=== PATIENT | female | born 1980 | race Caucasian/White ===

== ENCOUNTER 2023-12-22 13:05 | Emergency (ER) | payer OTHER, SELFPAY ==
[2023-12-22] VITALS (15 sets, daily range): BP systolic 108–132; BP diastolic 57–85; BMI 35.2
--- NOTE | 2023-12-22 14:09 | ED.GENMED ---
History of Present Illness
<Sariah Davis SITECORE DEVELOPER - Last Filed: 12/22/23 21:39>
General
Chief Complaint: Musculo-Skeletal Complaint
Source: family (Father at bedside providing the history)
Exam Limitations: non verbal-adult and other (Severe Down syndrome)
Time Seen by Provider: 12/22/23 13:26
Nursing documentation reviewed up to this point in time: agreed with
Travel History
Have you had any contact with someone who has COVID-19?: No
Do you have any symptoms of coronavirus? Fever > 100 degrees, chills, cough, shortness of breath, sore throat, loss of taste or smell, muscle aches, or headache?: No
History of Present Illness
History of Present Illness:
43-year-old female with Down syndrome presents with her father at bedside who states patient has a swollen, reddened left lower leg past 2 days. Patient does have a chronic left foot fungal infection which is treated with topical antifungals that
dad states has been worse recently. Pt has been eating and drinking well, no fever. At her baseline mentally.
Past History
<Sariah Davis SITECORE DEVELOPER - Last Filed: 12/22/23 21:39>
Past History
ED Past Medical History: Other (Down Syndrome); Negative Asthma, HTN, Hypercholesterolemia or NIDDM
ED Past Surgical History: None
Social History
Tobacco: Non-smoker
Alcohol: None
Personal: Single
Living: with family
Review of Systems
<Sariah Davis, SITECORE DEVELOPER - Last Filed: 12/22/23 21:39>
Review of Systems
Allergies reviewed?: Yes
All Other Systems: ROS reviewed and negative except as documented in HPI and ROS
Constitutional: Denies fever
Respiratory: Denies trouble breathing
ABD/GI: Denies vomiting, diarrhea or anorexia
Musculoskeletal: Reports other (swelling and redness LLE)
Skin: Reports other (Fungal rash distal left foot, chronic, dad states worse past several days)
Psychiatric: Reports other (nonverbal)
Phy Exam
<Sariah Davis SITECORE DEVELOPER - Last Filed: 12/22/23 21:39>
Physical Exam
Physical Exam:
GENERAL: No acute distress. Alert, nonverbal, severe Down's Syndrome
CONSTITUTIONAL: Afebrile.
EYES: PERRL, conjunctivae normal
ENMT: moist mucus membranes
RESPIRATORY: Regular respirations, nonlabored, lungs clear.
CARDIOVASCULAR: Regular rate and rhythm, no murmurs, no rubs.
GI: Soft, nondistended
MUSCULOSKELETAL: Moves with ease. Well perfused.
SKIN: Warm, dry, pink, fungal rash distal left foot, bright red with peeling skin, LLE mildly erythematous and swollen compared to right.
PSYCH: Will not let anyone perform exam, pushes them away.
NEUROLOGIC: Awake, alert.
Course
<Sariah Davis, SITECORE DEVELOPER - Last Filed: 12/22/23 21:39>
Orders/Labs/Results
Orders:
Orders
12/22/23 14:04
US Periph Venous LOWER Ext LT Urgent
Comment:
Reason For Exam: redness, swelling
12/22/23 14:24
Ketamine Concentrate Injection [Ketamine HCl] 500 mg .ROUTE .[facility]
12/22/23 14:26
Ketamine Concentrate Injection [Ketamine HCl] 170 mg IM NOW STA
12/22/23 14:45
Complete Blood Count/With Diff Urgent
Comprehensive Metabolic Panel Urgent
Free T4 Urgent
TSH Reflex To Free T4 Urgent
12/22/23 14:55
Fluconazole 200 mg/100 ml [Diflucan 200 mg] 100 mg Syringe [Syringe-Pump] 0 ml IV NOW
12/22/23 14:58
CeFAZolin 1 GRAM [Ancef] 1 gram in 5 ml IV NOW
12/22/23 15:03
Fluconazole 200 mg/100 ml [Diflucan 200 mg] 100 ml IV NOW
12/22/23 16:01
Ondansetron Orally Disint [Zofran Odt (Orally Disintegrating)] 4 mg PO NOW STA
Abnormal Lab Results
12/22/23
14:45
RBC 4.10 L 10^6/uL
(4.20-5.40)
MCH 34.4 H pg
(27.0-31.0)
Lymphocytes % 18.4 L %
(20.5-51.1)
BUN 19 H mg/dl
(7-17)
TSH (Reflex) 12.80 H uIU/ml
(0.47-4.68)
12/22/23 14:45
12/22/23 14:45
Vital Signs
Initial and Last Documented VS:
Initial Vital Signs
Temp Pulse Resp BP Pulse Ox
98.6 F 74 17 132/80 96
12/22/23 14:30 12/22/23 14:30 12/22/23 14:30 12/22/23 14:30 12/22/23 14:30
Last Documented Vital Signs
Temp Pulse Resp BP Pulse Ox
98.6 F 78 18 113/71 99
12/22/23 15:50 12/22/23 15:50 12/22/23 15:50 12/22/23 15:50 12/22/23 15:50
<Osmel Eli, DO - Last Filed: 12/22/23 14:17>
Orders/Labs/Results
Orders:
Orders
12/22/23 14:04
US Periph Venous LOWER Ext LT Urgent
Comment:
Reason For Exam: redness, swelling
12/22/23 14:24
Ketamine Concentrate Injection [Ketamine HCl] 500 mg .ROUTE .[facility]
12/22/23 14:26
Ketamine Concentrate Injection [Ketamine HCl] 170 mg IM NOW STA
12/22/23 14:45
Complete Blood Count/With Diff Urgent
Comprehensive Metabolic Panel Urgent
Free T4 Urgent
TSH Reflex To Free T4 Urgent
12/22/23 14:55
Fluconazole 200 mg/100 ml [Diflucan 200 mg] 100 mg Syringe [Syringe-Pump] 0 ml IV NOW
12/22/23 14:58
CeFAZolin 1 GRAM [Ancef] 1 gram in 5 ml IV NOW
12/22/23 15:03
Fluconazole 200 mg/100 ml [Diflucan 200 mg] 100 ml IV NOW
12/22/23 16:01
Ondansetron Orally Disint [Zofran Odt (Orally Disintegrating)] 4 mg PO NOW STA
Abnormal Lab Results
12/22/23
14:45
RBC 4.10 L 10^6/uL
(4.20-5.40)
MCH 34.4 H pg
(27.0-31.0)
Lymphocytes % 18.4 L %
(20.5-51.1)
BUN 19 H mg/dl
(7-17)
TSH (Reflex) 12.80 H uIU/ml
(0.47-4.68)
12/22/23 14:45
12/22/23 14:45
Vital Signs
Initial and Last Documented VS:
Initial Vital Signs
Temp Pulse Resp BP Pulse Ox
98.6 F 74 17 132/80 96
12/22/23 14:30 12/22/23 14:30 12/22/23 14:30 12/22/23 14:30 12/22/23 14:30
Last Documented Vital Signs
Temp Pulse Resp BP Pulse Ox
98.6 F 78 18 113/71 99
12/22/23 15:50 12/22/23 15:50 12/22/23 15:50 12/22/23 15:50 12/22/23 15:50
Procedures
<Sariah Davis SITECORE DEVELOPER - Last Filed: 12/22/23 21:39>
Moderate Sedation
ASA Risk Score: Class I
Chart and allergies reviewed: Yes
Consent for anesthesia obtained: Yes
Time out completed (validating right patient & procedure): Yes
History of difficult intubation: No
Airway free of obstruction: Yes
Patient has a gag reflex: Yes
Patient is able to open mouth: Yes
Patient has no dentures: Yes
Patient has no loose teeth: Yes
Medication administered by Provider during Moderate Sedation: N/A-Meds administered by RN (see MAR) and Other (Ketamine 170 mg IM)
Total dose administered: 170
Time drug administered: 14:30
Start Time: 14:30
Stop Time: 15:35
<Sariah Davis, SITECORE DEVELOPER - Last Filed: 12/22/23 21:39>
MDM/Problems Addressed
Differential Diagnosis Includes:
cellulitis, DVT
MDM/Problems Addressed:
43-year-old female with Down syndrome presents with her father at bedside who states patient has a swollen, reddened left lower leg past 2 days. Patient does have a chronic left foot fungal infection which is treated with topical antifungals that
dad states has been worse recently. Pt has been eating and drinking well, no fever. At her baseline mentally.
12/22/2023 1433 PM
Patient to be consciously sedated with ketamine 3 mg/kg.
Dr. Eli in to evaluate patient and agrees
Moderate sedation consent form signed and scanned into chart
12/22/2023 1456 PM
Patient tolerated the moderate sedation well is alert and back to baseline
12/22/2023 1537 PM
CBC normal
CMP normal
TSH elevated 12.80, father requested we check it as is has been elevated and PCP wanted it rechecked. He will discuss with PCP in 3 days (Monday)
Patient given IV Diflucan for the fungal infection of her foot
Patient given Ancef 1 g IV
Rx for Diflucan 100 mg x 2 pills and Keflex 500 mg QID for 10 days sent to her pharmacy,
12/22/2023 1601 PM
Patient vomited once, most likely side effect from the ketamine, given 1 dose of Zofran
<Sariah Davis, SITECORE DEVELOPER - Last Filed: 12/22/23 21:39>
*Critical Care Note
Total Time (30-74mins, 75-104mins- exclusive of procedures): Not Applicable
ED Attending Note
<Sariah Davis, SITECORE DEVELOPER - Last Filed: 12/22/23 21:39>
-
Portions of this chart may have been created with voice recognition software.� Occasional wrong word or��sound alike� substitutions may have occurred due to the inherent limitations of voice recognition software.
<Osmel Eli, DO - Last Filed: 12/22/23 14:17>
ED Attending Note
Patient seen and examined by attending physician: Yes
I performed the substantive portion of visit, reviewed & personally made and approve the management plan that is documented in note by myself or YANN.: Yes
ED Attending Note:
I have seen and evaluated the patient with a [id number] encounter. I have spoken to the advance practicer provider and involved in the medical history, the physical exam, medical decision making.
Evaluation and management service: agree unless noted differently below.
Results interpretation: agree unless noted differently below.
Focused HPI: 43-year-old female presenting with father for evaluation of leg swelling and redness. Patient has Down syndrome and father is the historian. Patient has been dealing with a fungal infection of her left foot and creams have been used.
Father is worried that the fungal infection is getting worse and now she has redness of her leg. He was sent in to rule out blood. Father states that patient will need sedation
Physical exam: Sitting in bed comfortably. Mild erythema to the left calf. Fungal infection noted to left foot in between webbing of toes
Medical Decision Making: Patient requires ketamine to obtain blood work and ultrasound. Father signed consent. Will rule out DVT and likely start antibiotics
Discharge Plan
Departure
Patient Disposition: Home (Routine Discharge)
Date of Disposition: 12/22/23
Time of Disposition: 15:40
Patient with high blood pressure during this ER visit?: No
Condition: Fair
Discharge Problem:
Cellulitis of left lower extremity, Tinea pedis of left foot
Instructions: Athlete's Foot (DC), Cellulitis (Skin Infection), Adult ED, MODERATE SEDATION ADULT
Prescriptions:
New
cephalexin 500 mg capsule
500 mg PO QID 10 Days Qty: 40 0RF
fluconazole [Diflucan] 100 mg tablet
100 mg PO DAILY Qty: 2 0RF
No Action
ascorbic acid (vitamin C) [Vitamin C] 250 mg Tablet
250 mg PO DAILY
cholecalciferol (vitamin D3) [Vitamin D3] 25 mcg (1,000 unit) Capsule
25 mcg PO DAILY
Activity Restrictions/Additional Instructions:
As we discussed, keep the left foot clean and dry.
You may continue antifungal topical creams or sprays
I gave Sejal Diflucan (antifungal) intravenously today and sent a prescription to your pharmacy for two Diflucan 100 mg tablets. You may crush them and put in food tomorrow and Monday.
I also sent a prescription for Keflex 500 mg capsules to take 4 times a day for 10 days for the cellulitis/skin infection of the foot and leg. You may break open the capsules and put the powder in her food to give it to her.
See your primary care doctor Monday or Monday if you do not notice any improvement by then
See your doctor next week if the foot and leg are not significantly better within the next 5 days
Return here immediately if the leg becomes more red and swollen, if Sejal develops a fever or vomiting or seems sicker in any way
Interventions
Interventions:
*Risk Screen - Suicide Last Done: 12/22/23 13:19
*General Assessment Last Done: 12/22/23 13:19
*Neglect/Abuse Screening Last Done: 12/22/23 13:19
ED- Fall Risk Assessment Last Done: 12/22/23 13:19
*ED COVID-19 Vaccine History Last Done: 12/22/23 13:19
*Nursing Disposition Last Done: 12/22/23 15:57
ED-Musculoskeletal Assessment Last Done: 12/22/23 13:19
Discharge Date and Time
Discharge Date/Time: 12/22/23 16:12
[2023-12-22] MEDS: KETAMINE HCL 170 MG IM (14:28)
[2023-12-22 14:53] LABS: % Basophils 0.9 % (0-2); % Immature Granulocytes 0.4 % (0-0.5); % Lymphocytes 18.4 % (20.5-51.1); % Monocytes 7.2 % (1.7-9.3); % Neutrophils 72.1 % (42.2-75.2); Absolute Basophils 0.1 10^3/uL (0-0.2); Absolute Eosinophils 0.1 10^3/uL (0-0.7); Absolute Lymphocytes 1.4 10^3/uL (1.2-3.4); Absolute Monocytes 0.6 10^3/uL (0.1-0.6); Absolute Neutrophils 5.5 10^3/uL (1.4-6.5); Hematocrit 40.5 % (37.0-47.0); Hemoglobin 14.1 g/dL (12.0-16.0); Mean Corp Hgb Conc. 34.8 g/dL (33.0-37.0); Mean Corpuscular Hgb 34.4 pg (27.0-31.0); Mean Corpuscular Volume 98.8 fL (81.0-99.0); Mean Platelet Volume 9.3 fL (7.4-10.4); Nucleated Red Blood Cells % 0 %; Platelet Count 323 10^3/uL (130-400); Red Cell Dist. Width 13.9 % (11.5-14.5); White Blood Cell Count 7.6 10^3/uL (4.8-10.8)
[2023-12-22 15:10] LABS: ALT (SGPT) 24 U/L (0-35); AST (SGOT) 30 U/L (14-36); Albumin 3.9 g/dl (3.5-5.0); Alkaline Phosphatase 77 U/L (38-126); Blood Urea Nitrogen 19 mg/dl (7-17); Calcium 8.5 mg/dl (8.4-10.2); Carbon Dioxide 26 mmol/L (22-30); Chloride 105 mmol/L (98-107); Estimated Creatinine Clearance 68 ml/min; Glucose 99 mg/dl (70-99); Sodium 137 mmol/L (135-145); Total Bilirubin 0.5 mg/dl (0.2-1.3); Total Protein 7.3 g/dl (6.3-8.2); eGFR > 60.00
[2023-12-22] MEDS: DIFLUCAN 200 MG 100 IV (15:14)
[2023-12-22] MEDS: ANCEF 5 IV (15:14)
[2023-12-22] MEDS: ZOFRAN ODT (ORALLY DISINTEGRATING) 4 MG PO (16:05)
[2023-12-22 16:24] LABS: Free T4 1.04 ng/dl (0.78-2.19)
== END 2023-12-22 16:12 | disposition home or self-care (01) ==
LOC: EMR 13:05
PROVIDERS: Registered Nurse; EMERGENCY PHYSICIAN Student in an Organized Health Care Education/Training Program; FAMILY PHYSICIAN Family Medicine
DX: L03.116 Cellulitis of left lower limb (principal); B35.3 Tinea pedis; Q90.9 Down syndrome, unspecified
CPT/HCPCS: 99285; 96374; 96375; 96372; 80053; 84439; 84443; 85025; 93971